=== PATIENT | female | born 1985 | race Two or more races ===

== ENCOUNTER 2024-07-30 13:30 | Inpatient (IN) | payer MEDICAID ==
[~2024-07-30] VITALS: Ht 165.1 cm; Wt 91.7 kg
[2024-07-30 13:57] LABS: Basophils # (auto) 0.1 10 ^3/uL (0-0.2); Basophils % (auto) 1.2 % (0.0-2.0); Eosinophils # (auto) 0.1 10 ^3/uL (0-0.8); Eosinophils % (auto) 1.5 % (0.0-7.0); Hematocrit 40.3 % (36.0-46.0); Hemoglobin 13.8 g/dL (12.2-16.2); Lymphocytes # (auto) 2.3 10 ^3/uL (0.4-5.4); Lymphocytes % (auto) 33.3 % (10.0-50.0); Mean Corpuscular Hemoglobin 30.4 pg (28.0-32.0); Mean Corpuscular Hgb Conc. 34.3 g/dL (32.0-36.0); Mean Corpuscular Volume 88.8 fL (80.0-100.0); Monocytes # (auto) 0.4 10 ^3/uL (0-1.3); Monocytes % (auto) 5.9 % (0.0-12.0); Neutrophils % (auto) 58.1 % (37.0-80.0); Nucleated Red Blood Cells % 0.2 %; Platelet Count (auto) 385 10^3/uL (140-450); Red Blood Cells 4.53 10^6/uL (4.0-5.20); Red Cell Distribution Width 14.2 % (11.8-14.3); White Blood Cell 6.9 10^3/uL (4.4-10.8)
[2024-07-30 14:13] LABS: Alanine Aminotransferase 26 U/L (7-40); Albumin 4.6 g/dL (3.2-4.8); Alkaline Phosphatase 122 U/L (46-116); Anion Gap 4 (5-15); Aspartate Aminotransferase 15 U/L (13-40); BUN/Creatinine Ratio 22.2 (10.0-20.0); Bilirubin, Total 0.2 mg/dL (0.2-1.0); Blood Urea Nitrogen 16 mg/dL (9-23); Carbon Dioxide 27 mmol/L (20-31); Chloride 109 mmol/L (98-107); Glucose 112 mg/dL (74-106); Potassium 4.6 mmol/L (3.5-5.1); Sodium 140 mmol/L (136-145); Total Protein 6.9 g/dL (5.7-8.2)
[2024-07-30 19:59] VITALS: PULSE 71; RESP 19; O2SAT 96
[2024-07-30 20:00] LABS: Urine Bacteria None Seen /hpf (None Seen)
[2024-07-30 20:18] LABS: Urine Blood Negative /uL (Negative); Urine Clarity Clear (Clear); Urine Color Light-Yellow (Yellow); Urine Mucus FEW (None Seen); Urine Protein, UAD Negative (Negative); Urine Specific Gravity 1.027 (1.001-1.035); Urine Urobilinogen Normal (Negative); Urine WBC <1 /hpf (0 - 5)
[2024-07-30] MEDS: LORazepam 0.5 MG TAB PO ONE (21:31)
[2024-07-30] MEDS: ONDANSETRON HCL 4 MG/2 ML VIAL IV ONE (21:31)
[2024-07-30] MEDS: MORPHINE SULFATE INJ 2 MG/ml SYRG IV ONE (21:32)
[2024-07-30] MEDS ORDERED: ACETAMINOPHEN 500 MG TAB PO PRN (23:30)
[2024-07-30] MEDS ORDERED: hydrALAZINE HCL 20 MG/ML VL IV PRN (23:30)
[2024-07-30] MEDS: ATORVASTATIN 20 MG TAB PO ONE (23:42)
[2024-07-30] MEDS: ASPirin 81 mg TAB PO ONE (23:43)
[2024-07-31] VITALS (11 sets, daily range): BP systolic 125–146; BP diastolic 84–99; PULSE 70–89; RESP 17–20; TEMP 97.6–98.3; O2SAT 95–100
[2024-07-31 00:21] LABS: INR 0.93 (0.9-1.15); Partial Thromboplastin Time 26.6 SEC (24.5-34.5); Prothrombin Time 9.9 sec (9.3-11.8)
[2024-07-31 01:44] LABS: Amphetamine Screen, Urine Neg (NEGATIVE); Barbiturate Scree,Urine Neg (NEGATIVE); Benzodiazephine Screen, Urine Neg (NEGATIVE)
[2024-07-31 01:45] LABS: Cannabinoid Screen, Urine Neg (NEGATIVE); Cocaine Screen, Urine Neg (NEGATIVE); Opiate Scree,Urine Neg (NEGATIVE); Phencyclidine Screen, Urine Neg (NEGATIVE)
[2024-07-31] MEDS: MORPHINE SULFATE INJ 2 MG/ml SYRG IV PRN (02:52)
[2024-07-31] MEDS ORDERED: ALBUTEROL SULF 2.5 MG/0.5ML(0.5%) NEB SOLN NEB PRN (05:45)
[2024-07-31] MEDS ORDERED: TRAM50TA2 PO (06:34)
[2024-07-31] MEDS ORDERED: BACL20TA PO (06:34)
[2024-07-31] MEDS ORDERED: SUMA100T15 PO (06:34)
[2024-07-31] MEDS ORDERED: MORP15TA PO ×2 (06:34)
[2024-07-31] MEDS ORDERED: LACTCAP20 OR (06:37)
[2024-07-31] MEDS: LOSARTAN POTASSIUM 50 MG TAB PO SCH (09:00)
[2024-07-31] MEDS: ASPirin 81 mg TAB PO SCH (09:01)
[2024-07-31] MEDS: ERGOCALCIFEROL 50,000 UNIT(1.25MG) CAP PO SCH (09:01)
[2024-07-31] MEDS: ISOSORBIDE DINITRATE 10 MG TAB PO SCH (09:02)
[2024-07-31 09:41] LABS: Basophils # (auto) 0.1 10 ^3/uL (0-0.2); Eosinophils # (auto) 0.1 10 ^3/uL (0-0.8); Eosinophils % (auto) 2.5 % (0.0-7.0); Hemoglobin 12.9 g/dL (12.2-16.2); Lymphocytes # (auto) 1.8 10 ^3/uL (0.4-5.4); Mean Corpuscular Hemoglobin 30.8 pg (28.0-32.0); Mean Corpuscular Hgb Conc. 34.8 g/dL (32.0-36.0); Mean Corpuscular Volume 88.6 fL (80.0-100.0); Monocytes # (auto) 0.3 10 ^3/uL (0-1.3); Monocytes % (auto) 5.3 % (0.0-12.0); Neutrophils # (auto) 2.9 10 ^3/uL (1.6-8.6); Neutrophils % (auto) 56.2 % (37.0-80.0); Nucleated Red Blood Cells % 0.1 %; Platelet Count (auto) 347 10^3/uL (140-450); Red Blood Cells 4.17 10^6/uL (4.0-5.20); Red Cell Distribution Width 14.1 % (11.8-14.3); White Blood Cell 5.2 10^3/uL (4.4-10.8)
[2024-07-31 09:56] LABS: Chloride 107 mmol/L (98-107); Potassium 3.6 mmol/L (3.5-5.1); Sodium 139 mmol/L (136-145)
[2024-07-31 09:57] LABS: Anion Gap 7 (5-15); Calcium 9.4 mg/dL (8.7-10.4); Carbon Dioxide 25 mmol/L (20-31)
[2024-07-31 10:02] LABS: BUN/Creatinine Ratio 19.4 (10.0-20.0); Blood Urea Nitrogen 13 mg/dL (9-23); Glucose 106 mg/dL (74-106); Triglycerides 141 mg/dL (< 150)
[2024-07-31 10:03] LABS: LDL Cholesterol 106 mg/dL (< 100)
[2024-07-31 10:04] LABS: Cholesterol 168 mg/dL (< 200); HDL Cholesterol 56 mg/dL (40-59)
[2024-07-31] MEDS ORDERED: traMADol HCL 50 MG TAB PO PRN (13:00)
[2024-07-31] MEDS ORDERED: KETOROLAC TROMETH 30 MG/ML 1ML VIAL IV ONE (14:00)
[2024-07-31] MEDS ORDERED: FLUCONAZOLE 100 MG TAB PO ONE (17:45)
[2024-07-31] MEDS: LOSARTAN POTASSIUM 50 MG TAB PO ONE (18:28)
[2024-07-31] MEDS: ONDANSETRON HCL 4 MG/2 ML VIAL IV PRN (18:45)
[2024-07-31] MEDS: LORazepam 0.5 MG TAB PO PRN (18:57)
[2024-07-31] MEDS: ATORVASTATIN 20 MG TAB PO SCH (22:20)
[2024-08-01] VITALS (10 sets, daily range): BP systolic 116–143; BP diastolic 77–90; PULSE 81–100; RESP 17–21; TEMP 97.6–98.4; O2SAT 93–98
[2024-08-01 04:30] LABS: COVID19 ANTIGEN SOFIA FIA NEGATIVE (NEGATIVE)
[2024-08-01 07:01] LABS: Basophils # (auto) 0 10 ^3/uL (0-0.2); Basophils % (auto) 0.6 % (0.0-2.0); Eosinophils # (auto) 0.1 10 ^3/uL (0-0.8); Eosinophils % (auto) 2.2 % (0.0-7.0); Hematocrit 39.5 % (36.0-46.0); Hemoglobin 13.5 g/dL (12.2-16.2); Lymphocytes # (auto) 2.1 10 ^3/uL (0.4-5.4); Lymphocytes % (auto) 34.9 % (10.0-50.0); Mean Corpuscular Hemoglobin 30.4 pg (28.0-32.0); Mean Corpuscular Hgb Conc. 34.3 g/dL (32.0-36.0); Mean Corpuscular Volume 88.5 fL (80.0-100.0); Monocytes # (auto) 0.3 10 ^3/uL (0-1.3); Monocytes % (auto) 5.8 % (0.0-12.0); Neutrophils # (auto) 3.3 10 ^3/uL (1.6-8.6); Neutrophils % (auto) 56.5 % (37.0-80.0); Nucleated Red Blood Cells % 0.2 %; Platelet Count (auto) 369 10^3/uL (140-450); Red Blood Cells 4.46 10^6/uL (4.0-5.20); Red Cell Distribution Width 14.4 % (11.8-14.3); White Blood Cell 5.9 10^3/uL (4.4-10.8)
[2024-08-01 07:21] LABS: Anion Gap 8 (5-15); Carbon Dioxide 25 mmol/L (20-31); Chloride 105 mmol/L (98-107); Potassium 3.9 mmol/L (3.5-5.1); Sodium 138 mmol/L (136-145)
[2024-08-01 07:22] LABS: Calcium 9.8 mg/dL (8.7-10.4)
[2024-08-01 07:27] LABS: BUN/Creatinine Ratio 18.8 (10.0-20.0); Blood Urea Nitrogen 15 mg/dL (9-23); Glucose 91 mg/dL (74-106)
[2024-08-01] MEDS: LOSARTAN POTASSIUM 50 MG TAB PO SCH (09:59)
[2024-08-01] MEDS ORDERED: FLUCONAZOLE 100 MG TAB PO SCH (10:00)
[2024-08-01] MEDS ORDERED: KETOROLAC TROMETH 30 MG/ML 1ML VIAL IV PRN (10:30)
[2024-08-01] MEDS: KETOROLAC TROMETH 30 MG/ML 1ML VIAL IV ONE (12:34)
[2024-08-01] MEDS ORDERED: hydrOXYzine 25 MG TAB or CAP PO PRN (13:00)
[2024-08-01] MEDS: MORPHINE SULFATE INJ 2 MG/ml SYRG IV ONE (15:00)
[2024-08-01] MEDS: MORPHINE SULFATE INJ 2 MG/ml SYRG IV PRN (15:39)
[2024-08-01] MEDS: traMADol HCL 50 MG TAB PO PRN (18:05)
[2024-08-02] VITALS (14 sets, daily range): BP systolic 120–142; BP diastolic 68–94; PULSE 62–88; RESP 11–19; TEMP 97.2–98.4; O2SAT 96–99
[2024-08-02 07:49] LABS: Calcium 9.3 mg/dL (8.7-10.4); Chloride 106 mmol/L (98-107); Sodium 138 mmol/L (136-145)
[2024-08-02 07:51] LABS: Anion Gap 5 (5-15); Carbon Dioxide 27 mmol/L (20-31)
[2024-08-02 07:55] LABS: Glucose 91 mg/dL (74-106)
[2024-08-02 07:56] LABS: BUN/Creatinine Ratio 20.8 (10.0-20.0); Blood Urea Nitrogen 15 mg/dL (9-23)
[2024-08-02 09:36] LABS: Hepatitis B Surface Antigen Negative (Negative)
[2024-08-02 09:58] LABS: Hepatitis C Antibody Negative (Negative)
[2024-08-02] MEDS: IODIXANOL 320MG/ML 100ML BTL IV ONE (10:23)
[2024-08-02] MEDS: MIDAZOLAM HCL 2MG/2ML 2ml VIAL (1mg/ml) ONE (11:38)
[2024-08-02] MEDS: fentaNYL CITRATE 100 MCG/2 ML VL ONE (11:38)
[2024-08-02] MEDS: VERAPAMIL 2.5MG/ML INJ 2ML VIAL IV ONE (11:39)
[2024-08-02] MEDS: LIDOCAINE 2%HCL (LOCAL ANESTH.) INJ 20ML MDV ONE (11:39)
[2024-08-02] MEDS: SODIUM CHL 0.9% 0 ML ONE (11:39)
[2024-08-02] MEDS: ANGIOMAX 250 MG VIAL IV ONE (11:39)
[2024-08-02] MEDS: HEPARIN SODIUM (PORCINE) 5000 UNITS/ML 1ML VIAL ONE (11:39)
[2024-08-02] MEDS: HYDROmorphone HCL 2 MG/ML VL/or syr ONE (11:51)
[2024-08-03 01:00] VITALS: BP 109/69; PULSE 78; RESP 19; TEMP 98.1; O2SAT 96
[2024-08-03 05:00] VITALS: BP 111/77; PULSE 74; RESP 19; TEMP 98.2; O2SAT 98
[2024-08-03 06:39] LABS: Alanine Aminotransferase 20 U/L (7-40); Alkaline Phosphatase 82 U/L (46-116); Anion Gap 6 (5-15); Aspartate Aminotransferase 12 U/L (13-40); Calcium 9.3 mg/dL (8.7-10.4); Carbon Dioxide 26 mmol/L (20-31); Chloride 106 mmol/L (98-107); Potassium 3.7 mmol/L (3.5-5.1); Sodium 138 mmol/L (136-145)
[2024-08-03 06:40] LABS: BUN/Creatinine Ratio 15.7 (10.0-20.0); Blood Urea Nitrogen 11 mg/dL (9-23); Glucose 93 mg/dL (74-106)
[2024-08-03 06:42] LABS: Bilirubin, Total 0.5 mg/dL (0.2-1.0); Total Protein 6.1 g/dL (5.7-8.2)
[2024-08-03 09:00] VITALS: BP 134/65; PULSE 85; RESP 18; TEMP 97.8; O2SAT 96
[2024-08-03] MEDS ORDERED: LOSA-534 PO (09:03)
[2024-08-03] MEDS ORDERED: ASPI-325 PO (09:03)
[2024-08-03] MEDS ORDERED: ATOR20TA50 PO (09:03)
[2024-08-03] MEDS ORDERED: ISOS10TA2 PO (09:03)
[2024-08-03] MEDS ORDERED: ERGO1CAP23 PO (09:03)
[2024-08-03 13:00] VITALS: BP 137/86; PULSE 93; RESP 20; TEMP 98.2; O2SAT 98
[2024-08-03] MEDS ORDERED: IBUP-1453 PO (14:47)
[2024-08-07] MEDS ORDERED: ERGOCALCIFEROL 50,000 UNIT(1.25MG) CAP PO SCH (09:00)
== END 2024-08-03 15:20 | disposition home or self-care (01) | DRG 192 ==
LOC: ER 13:30 → TELE 23:16 → TELE-WESTW 23:16 → WEST WING 08-03 01:27
PROVIDERS: ADMIT Internal Medicine; ATTEND Internal Medicine
PROC: 4A023N7 Measurement of Cardiac Sampling and Pressure, Left Heart, Percutaneous Approach (ICD-10-PCS; principal; 2024-08-02)
PROC: B211YZZ Fluoroscopy of Multiple Coronary Arteries using Other Contrast (ICD-10-PCS; 2024-08-02)
PROC: B215YZZ Fluoroscopy of Left Heart using Other Contrast (ICD-10-PCS; 2024-08-02)
DX: M94.0 Chondrocostal junction syndrome [Tietze] (principal); I24.9 Acute ischemic heart disease, unspecified; E11.9 Type 2 diabetes mellitus without complications; E66.9 Obesity, unspecified; E78.5 Hyperlipidemia, unspecified; I10 Essential (primary) hypertension; J45.909 Unspecified asthma, uncomplicated; G43.909 Migraine, unspecified, not intractable, without status migrainosus; Z20.822 Contact with and (suspected) exposure to COVID-19; Z88.8 Allergy status to other drugs, medicaments and biological substances; Z90.5 Acquired absence of kidney; Z90.49 Acquired absence of other specified parts of digestive tract; Z90.710 Acquired absence of both cervix and uterus; Z82.49 Family history of ischemic heart disease and other diseases of the circulatory system; Z80.8 Family history of malignant neoplasm of other organs or systems; Z82.3 Family history of stroke; Z98.51 Tubal ligation status; Z68.33 Body mass index [BMI] 33.0-33.9, adult; Z85.528 Personal history of other malignant neoplasm of kidney; Z87.442 Personal history of urinary calculi
CPT/HCPCS: 36415; 70450; 71046; 76705; 80048; 80053; 80061; 80307; 81001; 82306; 82607; 83880; 84443; 84484; 84702; 85025; 85610; 85730; 86141; 86703; 86803; 86850; 86900; 86901; 87340; 87426; 93005; 93306; 93458; 99152; G0378; J1885; J2250; J2405; Q9967